=== PATIENT | male | born 1945 | race Caucasian/White ===

== ENCOUNTER 2018-03-13 14:14 | Observation (INO) | payer MEDICARE, BC ==
[2018-03-13 14:40] LABS: BASO % 0.7 % (0-6); EOS % 3.4 % (0-6); GRAN % 65.9 % (47-80); HEMATOCRIT 44.1 % (42.0-52.0); HEMOGLOBIN 14.5 gm/dl (14.0-18.0); LYMPH % 17.3 % (16-45); MEAN CELL VOLUME 83.4 fl (81-97); MEAN CORPUSCULAR HEMOGLOBIN 27.4 pg (27-33); MEAN CORPUSCULAR HGB CONC 32.9 g/dl (32-36); MEAN PLATELET VOLUME 11.3 fl (7.4-10.4); MONO % 12.7 % (0-9); PLATELET COUNT 209 K/uL (130-400); RED BLOOD COUNT 5.29 M/uL (4.40-5.70); RED CELL DISTRIBUTION WIDTH 13.6 % (11.5-14.5)
--- NOTE | 2018-03-13 14:40 | Emergency Department Record ---
History of Present Illness - General Chief complaint: Hypergylcemia Stated complaint: BLOOD SUGAR HIGH Time Seen by Provider: 03/13/18 14:26 Source: Patient, Family Mode of Arrival: Stretcher Limitations: No limitations - History of Present Illness Initial comments: The patient is here due to becoming very sweaty at his doctor's office about an hour ago. It lasted for about 30 minutes. He denied any CP, SOB, GIBRAN, BOOTH, AP, nausea, cough, fever, or back pain during the episode. The patient states he is now back to normal. His doctor was concerned for his heart so she called 911 and the patient was brought to the ER. MD Complaint: Generalized weakness Onset/Timin -: Minutes(s) Associated Symptoms: Diaphoresis - [place] Coma Scale Eye Response: (4) Open spontaneously Motor Response: (6) Obeys commands Verbal Response: (5) Oriented Skip Total: 15 - Related Data Home Medications Medication Instructions Recorded Confirmed Last Taken Alprazolam [Xanax] 0.5 mg PO ASDIR 03/13/18 03/13/18 Unknown Dicyclomine HCl [Bentyl] 1 tab PO DAILY 03/13/18 03/13/18 03/13/18 Guaifenesin [Mucinex] 600 mg PO DAILY 03/13/18 03/13/18 03/13/18 Magnesium Oxide [Magnesium] 500 mg PO ASDIR 03/13/18 03/13/18 03/13/18 Tiotropium [place] [Spiriva] 18 mcg IH DAILY 03/13/18 03/13/18 03/13/18 Allergies Allergy/AdvReac Type Severity Reaction Status Date / Time No Known Drug Allergies Allergy Verified 03/13/18 14:26 Travel Screening - Travel/Exposure Within Last 30 Days Have you traveled within the last 30 days?: No - Travel/Exposure Within Last Year Have you traveled outside the [place] in the last year?: No - Additonal Travel Details Have you been exposed to anyone with a communicable illness?: No - Travel Symptoms Symptom Screening: None Review of Systems Constitutional: Denies: Chills, Fever Eyes: Denies: Eye discharge ENT: Denies: Congestion Respiratory: Denies: Cough, Dyspnea Cardiovascular: Denies: Arrhythmia, Chest pain Endocrine: Denies: Fatigue Gastrointestinal: Denies: Abdominal pain Genitourinary: Denies: Dysuria Skin: Denies: Bruising Neurological: Denies: Abnormal gait Psychiatric: Denies: Anxiety Past Medical History - SOCIAL HISTORY Smoking Status: Former smoker Alcohol Use: None Drug Use: None - RESPIRATORY Hx Respiratory Disorders: Yes Hx COPD: Yes Hx Sleep Apnea: Yes Hx of CPAP: No - CARDIOVASCULAR Hx Cardio Disorders: Yes Hx Abnormal EKG: Yes Hx Cardiac Cath: Yes Hx Chest Pain: Yes Hx Heart Attack: Yes Hx Hypertension: Yes - NEURO Hx Neuro Disorders: No - GI Hx GI Disorders: No - Hx Genitourinary Disorders: Yes Hx Prostate Problems: Yes (enlarged prostate) - ENDOCRINE Hx Endocrine Disorders: Yes Hx Diabetes: Yes Hx Thyroid Disease: No - MUSCULOSKELETAL Hx Musculoskeletal Disorders: Yes Hx Arthritis: Yes - PSYCH Hx Psych Problems: Yes Hx Depression: Yes - HEMATOLOGY/ONCOLOGY Hx Hematology/Oncology Disorders: No Family Medical History Any Significant Family History?: No Family Hx Comment (NOT TO BE USED IN PLACE OF ITEMS BELOW): Pt adopted at 16 months, unfamiliar with familial history Physical Exam - General General Appearance: Alert, Oriented x3, Cooperative, No acute distress - Head Head exam: Atraumatic, Normocephalic, Normal inspection - Eye Eye exam: Normal appearance, PERRL - ENT Throat exam: Normal inspection. negative: Tonsillar erythema, Tonsillar exudate - Neck Neck exam: Normal inspection, Full ROM. negative: Tenderness - Respiratory Respiratory exam: Normal lung sounds bilaterally. negative: Respiratory distress - Cardiovascular Cardiovascular Exam: Regular rate, Normal rhythm, Normal heart sounds - GI/Abdominal GI/Abdominal exam: Soft, Normal bowel sounds. negative: Tenderness - Extremities Extremities exam: Full ROM, Normal capillary refill. negative: Normal inspection (There appears to be a superficial infection to the L forearm at a dog bite scratch site. ), Tenderness - Back Back exam: Reports: Normal inspection - Neurological Neurological exam: Alert, Normal gait. negative: Abnormal gait, Motor sensory deficit Course Vital Signs 03/13/18 14:18 Temperature 98.7 F Pulse Rate 105 H Respiratory 16 Rate Blood Pressure 140/91 Pulse Ox 96 - Reevaluation(s) Reevaluation #1: The patient is doing very well at this time. He denies any pain, cough, fever, or discomfort. I did explain to him that his BS is elevated but he clearly is not in DKA. Due to the sweating I did recommend a short stay hospital admission and the patient did agree. I also did discuss the case with Magaly ([employer]) and she does accept the admission for Dr. Mendoza. 03/13/18 15:31 Reevaluation #2: 2nd EKG: NSR at 103, RBBB with LPFB, neg for ischemic changes. 03/13/18 15:32 Medical Decision Making - Data Complexity MDM Data: Labs Ordered and/or Reviewed, X-Ray Ordered and/or Reviewed, EKG Ordered and/or Reviewed - Lab Data Result diagrams: 03/13/18 14:05 03/13/18 14:05 - EKG Data -: EKG Interpreted by Me EKG: No Acute Changes, Unchanged From Previous - Radiology Data Radiology results: Report reviewed (CXR: Poss atelectasis or infiltrate LLL ( doubt infiltrate due to no cough, fever, or WBC elevation)) Disposition Disposition: Admit Clinical Impression: Hyperglycemia, Nonspecific ST-T wave electrocardiographic changes Disposition: Still a Patient at [facility] Decision to Admit: Admit from ER Decision to Admit Date: 03/13/18 Decision to Admit Time: 15:33 Accepting Physician: Reji Time Discussed w/Accepting Physician: 15:33 Condition: (2) Stable Forms: Patient Portal Access Time of Disposition: 15:33 Quality - Quality Measures Quality Measures: N/A - Blood Pressure Screening View Details: Yes Does Patient Have Any of the Following: Active Dx of HTN Blood Pressure Classification: Hypertensive Reading Systolic Measurement: 140 Diastolic Measurement: 91 Screening for High Blood Pressure: Patient Exclusion, Hx of HTN [[id number]]
[2018-03-13 14:54] LABS: PARTIAL THROMBOPLASTIN TIME 27.3 SECONDS (24.5-39.1)
[2018-03-13 14:55] LABS: BLOOD UREA NITROGEN 17 mg/dL (8-23); CREATININE 0.8 mg/dL (0.7-1.2); EST GLOMERULAR FILTRATION RATE > 60 mL/min
[2018-03-13 15:01] LABS: CREATINE PHOSPHOKINASE 113 U/L (39-308)
[2018-03-13] MEDS ORDERED: HUMULIN R 100 UNIT/ML VIAL IV ONE (15:05)
[2018-03-13] MEDS ORDERED: 0.9 % SODIUM CHLORIDE 1,000 ML BAG IV ONE (15:08)
[2018-03-13 15:10] LABS: THYROID STIMULATING HORMONE 1.16 uIU/mL (0.270-4.20)
[2018-03-13 15:21] LABS: URINE APPEARANCE CLEAR; URINE BILIRUBIN NEGATIVE (NEGATIVE); URINE BLOOD NEGATIVE (NEGATIVE); URINE COLOR YELLOW; URINE KETONE NEGATIVE (NEGATIVE); URINE LEUKOCYTE ESTERASE NEGATIVE (NEGATIVE); URINE NITRITE NEGATIVE (NEGATIVE); URINE PROTEIN NEGATIVE (NEGATIVE); URINE UROBILINOGEN 0.2 E.U./dL (0.20 - 1.00)
[2018-03-13 15:21] LABS: GLUCOSE,RANDOM 474 mg/dL (74-109)
[2018-03-13 15:27] LABS: URINE GLUCOSE (UA) >=1000 mg/dL (NEGATIVE)
[2018-03-13] MEDS ORDERED: AMOXICILLIN/POTASSIUM CLAV 875MG/125MG TABLET PO ONE (15:28)
[2018-03-13] MEDS ORDERED: ASPIRIN 325 MG TABLET PO ONE (15:37)
[2018-03-13] MEDS ORDERED: HUMULIN R 100 UNIT/ML VIAL SC ONE (17:06)
[2018-03-13] MEDS ORDERED: 0.9 % SODIUM CHLORIDE 1000ML 1,000 ML IV PRN (18:26)
[2018-03-13] MEDS ORDERED: ACETAMINOPHEN 500 MG TABLET PO PRN (18:26)
[2018-03-13] MEDS ORDERED: ALPRAZOLAM 0.25 MG TABLET PO PRN (19:00)
[2018-03-13] MEDS: AMOXICILLIN/POTASSIUM CLAV 875MG/125MG TABLET PO SCH (21:04)
[2018-03-13] MEDS: BACLOFEN 10 MG TABLET PO SCH ×2 (21:05→21:59)
[2018-03-13] MEDS: NOVOLOG FLEXPEN (INSULIN ASPART) 100 UNITS/ML SQ SCH ×2 (21:06→23:23)
[2018-03-13] MEDS: PREGABALIN (LYRICA) 100MG CAPSULE PO SCH (21:06)
[2018-03-13] MEDS ORDERED: SIMVASTATIN 20 MG TABLET PO SCH (22:00)
[2018-03-13] MEDS ORDERED: HUMULIN R 100 UNIT/ML VIAL SQ SCH (22:00)
[2018-03-13] MEDS ORDERED: TAMSULOSIN HCL 0.4 MG CAP.ER.24H PO SCH (22:00)
[2018-03-13] MEDS: ADVAIR PUFF SCH (22:22)
[2018-03-14 04:55] LABS: ALB/GLOB RATIO 1.3 (1.1-1.8); ALBUMIN 3.6 g/dL (4.0-5.0); ALKALINE PHOSPHATASE 65 U/L (40-129); ALT/SGPT 43 U/L (<41); AST/SGOT 48 U/L (10.0-50.0); BLOOD UREA NITROGEN 14 mg/dL (8-23); CREATININE 0.6 mg/dL (0.7-1.2); EST GLOMERULAR FILTRATION RATE > 60 mL/min; GLUCOSE,RANDOM 133 mg/dL (74-109); TOTAL PROTEIN 6.4 g/dL (6.6-8.7)
[2018-03-14 04:58] LABS: CKMB 3.6 ng/mL (<6.73)
--- NOTE | 2018-03-14 07:28 | RADIOLOGY REPORT ---
EXAM: CHEST, TWO VIEWS HISTORY: DIFFICULTY IN BREATHING. TECHNIQUE: PA and lateral views of the chest were obtained. Comparison: Two view chest 11/08/16. FINDINGS: The heart size is within normal limits. Calcification and mild torsion of the aorta. Minor streaky atelectasis or infiltrate in the lingula anterolaterally. No pleural effusion of pneumothorax evidence. Spinal stimulator wires in place, also present previously, extending up to the approximate T8 level. Hypertrophic spurring in the thoracic spine. IMPRESSION: 1. MILD STREAKY ATELECTASIS OR INFILTRATE IN THE LINGULA ANTEROLATERALLY. 2. SPINAL STIMULATOR WIRES IN PLACE. 3. HYPERTROPHIC SPURRING IN THE SPINE. JOB NUMBER: [id number] [facility]
[2018-03-14 07:46] LABS: BASO % 0.6 % (0-6); EOS % 2.9 % (0-6); GRAN % 69.1 % (47-80); HEMATOCRIT 45.1 % (42.0-52.0); HEMOGLOBIN 14.9 gm/dl (14.0-18.0); LYMPH % 14.8 % (16-45); MEAN CELL VOLUME 83.2 fl (81-97); MEAN CORPUSCULAR HEMOGLOBIN 27.5 pg (27-33); MEAN PLATELET VOLUME 10.9 fl (7.4-10.4); MONO % 12.6 % (0-9); PLATELET COUNT 230 K/uL (130-400); RED BLOOD COUNT 5.42 M/uL (4.40-5.70); RED CELL DISTRIBUTION WIDTH 13.8 % (11.5-14.5); WHITE BLOOD COUNT W/O DIFF 9.4 K/uL (4.2-12.2)
--- NOTE | 2018-03-14 08:14 | History & Physical ---
History of Present Illness - Date of Service Date of Service for History & Physical: 03/14/18 - History of Present Illness Admitting Diagnosis: 1. New Onset Hyperglycemia with Diaphoresis, R/O CT. History of Present Illness: Lei Shipley is a 72 y.o. male who was brought to the ED by ambulance from his doctor's office on 03/13/2018. He had become diaphoretic for approximately 30 minutes while in the doctor's office but denied any other symptoms. While in the ER, blood glucose level was found to be 474 but he was determined not be be in DKA. EKG in the ED indicated nonspecific ST-T wave electrocardiographic changes, cardiac enzymes negative, CXR indicated possible atelectasis or infiltrate however infiltrate thought to be unlikely d/t no cough , fever or WBC elevation. PMHx includes: COPD, Sleep Apnea without CPAP, HTN, questionable hx of CT, enlarged prostate, OA, sciatica with spinal stimulator and DM. 03/14/2018: Pt resting comfortably in bed. Pt is a poor historian and unable to answer many questions about medications and his medical history. Does report that he was sweaty and pale while in "Eliana's office" yesterday but denied having any other symptoms. States that he was at his 2nd appointment with Eliana SUAREZ (appears to be from [facility]), as he has recently moved doctors because his last doctor "made him mad". Reports that he does not check his blood sugar often , maybe a few times a week but can't recall what his blood glucose levels are. Only takes his Novolog 25 units in the morning with his Lantus 100 units which he says he gives to himself. Doesn't do the other Novolog injections during the day because his previoius doctor "made him mad so I said forget it, I am not taking all that insulin." Hasn't been taking his insulin as prescribed for approximately 5 months. Confirms PMHx but is unaware if he has had a heart attack or any heart problems. States he had a bunch of tests at some hospital in [place] but was never told what he had. Pt is currently taking Simvastatin, Benazepril and ASA and states that he takes all of his pills every day but doesn 't know what each pill is for. He denies having any pain, SOB, GIBRAN, BOOTH, chills, fever, chest pain, edema, sweaty feeling or any discomfort. States that he has his normal cough, where he coughs up some mucous but that it hasn't changed at all. Wears 4L of O2 at all times. Reports that the dog scratch on his left arm has been there for one week. States there was never any drainage. PCP: [facility] in [place] Travel Screening - Travel/Exposure Within Last 30 Days Have you traveled within the last 30 days?: No - Travel/Exposure Within Last Year Have you traveled outside the [place] in the last year?: No - Additonal Travel Details Have you been exposed to anyone with a communicable illness?: No - Travel Symptoms Symptom Screening: None Review of Systems Reviewed: No additional complaints except as noted below Constitutional: Denies: Chills, Fever Eyes: Denies: Vision change ENT: Denies: Congestion Respiratory: Reports: Cough ("Always have a little one"). Denies: Dyspnea Cardiovascular: Denies: Arrhythmia, Chest pain, Edema Endocrine: Denies: Fatigue Gastrointestinal: Denies: Abdominal pain, Constipation, Diarrhea Genitourinary: Reports: Frequency ("big prostate"). Denies: Dysuria Musculoskeletal: Denies: Back pain Skin: Reports: Lesions (Dog scratch on left arm, cat scratches on legs). Denies : Bruising, Change in hair/nails Neurological: Denies: Abnormal gait, Confusion, Headache, Tingling Psychiatric: Denies: Anxiety Past Medical History - SOCIAL HISTORY Smoking Status: Former smoker Alcohol Use: None Drug Use: None - RESPIRATORY Hx Respiratory Disorders: Yes Hx COPD: Yes Hx Sleep Apnea: Yes Hx of CPAP: No - CARDIOVASCULAR Hx Cardio Disorders: Yes Hx Abnormal EKG: Yes Hx Cardiac Cath: Yes Hx Chest Pain: Yes Hx Heart Attack: Yes Hx Hypertension: Yes - NEURO Hx Neuro Disorders: No - GI Hx GI Disorders: No - Hx Genitourinary Disorders: Yes Hx Prostate Problems: Yes (enlarged prostate) - ENDOCRINE Hx Endocrine Disorders: Yes Hx Diabetes: Yes Hx Thyroid Disease: No - MUSCULOSKELETAL Hx Musculoskeletal Disorders: Yes Hx Arthritis: Yes - PSYCH Hx Psych Problems: Yes Hx Depression: Yes - HEMATOLOGY/ONCOLOGY Hx Hematology/Oncology Disorders: No Family Medical History Any Significant Family History?: No Family Hx Comment (NOT TO BE USED IN PLACE OF ITEMS BELOW): Pt adopted at 16 months, unfamiliar with familial history H&P Meds/Allergies - Allergies Allergies: Allergies Allergy/AdvReac Type Severity Reaction Status Date / Time No Known Drug Allergies Allergy Verified 03/13/18 14:26 - Home Medications Home Medications Medication Instructions Recorded Confirmed Last Taken Alprazolam [Xanax] 0.5 mg PO TID PRN 03/13/18 03/13/18 Unknown Dicyclomine HCl [Bentyl] 1 tab PO DAILY 03/13/18 03/13/18 03/13/18 Guaifenesin [Mucinex] 600 mg PO DAILY 03/13/18 03/13/18 03/13/18 Magnesium Oxide [Magnesium] 500 mg PO ASDIR 03/13/18 03/13/18 03/13/18 Tiotropium [place] [Spiriva] 18 mcg IH DAILY 03/13/18 03/13/18 03/13/18 - Active Medications Active Medications: Current Medications Acetaminophen (Tylenol 500mg Tab) 500 mg PO Q6H PRN PRN Reason: PAIN - MILD(1-4)/FEVER Alprazolam (Xanax) 0.5 mg PO TID PRN PRN Reason: ANXIETY Amoxicillin/Clavulanate Potassium (Augmentin 875 Tab) 1 each PO BID [facility] Last Admin: 03/13/18 21:04 Dose: 1 each Aspirin (Ecotrin (Ec)) 325 mg PO DAILY [facility] Baclofen (Lioresal) 10 mg PO TID [facility] Last Admin: 03/13/18 21:59 Dose: Not Given Benazepril HCl (Lotensin) 5 mg PO DAILY [facility] Sodium Chloride () 1,000 mls @ 100 mls/hr IV .Q10H PRN PRN Reason: LARGE VOLUME IV Insulin Aspart (Novolog Flexpen) 25 unit SQ TIDINS [facility] Last Admin: 03/13/18 21:06 Dose: 25 unit Insulin Aspart (Novolog Flexpen) 1 unit SQ QIDINS [facility]; Protocol Last Admin: 03/13/18 23:23 Dose: 12 unit Insulin Detemir (Levemir Flextouch) 100 unit SQ DAILY [facility] Patient Own Med: (Advair 500/50 Mg) 1 each PUFF BID [facility] Last Admin: 03/13/18 22:22 Dose: 1 each Patient Own Med: (Spiriva 18 Mcg Caps) 1 each PUFF DAILY [facility] Pregabalin (Lyrica) 100 mg PO BID [facility] Last Admin: 03/13/18 21:06 Dose: 100 mg Simvastatin (Zocor) 40 mg PO QHS [facility] Last Admin: 03/13/18 21:05 Dose: 40 mg Tamsulosin HCl (Flomax) 0.4 mg PO QHS [facility] Last Admin: 03/13/18 21:06 Dose: 0.4 mg Venlafaxine HCl (Effexor Xr) 150 mg PO DAILY [facility] Physical Exam - Vital Signs Vital Signs: Vital Signs - Last 24 Hrs Temp Pulse Pulse Resp BP BP Pulse Ox 03/14/18 07:49 98.7 F 118 H 18 100 03/14/18 04:30 96 03/14/18 04:00 97.7 F 91 H 17 135/95 96 03/14/18 00:00 97.5 F L 108 H 18 140/98 94 L 03/13/18 22:26 109 H 18 97 03/13/18 20:00 97.9 F 104 H 16 184/110 96 03/13/18 18:26 98.7 F 69 18 101/50 97 03/13/18 17:54 80 20 03/13/18 16:36 89 16 146/87 95 03/13/18 16:24 87 16 149/88 95 03/13/18 15:20 92 H 16 131/77 95 03/13/18 14:18 98.7 F 105 H 16 140/91 96 - General General Appearance: Alert, Oriented x3, Cooperative, No acute distress Limitations: Other (poor historian) - Head Head exam: Atraumatic, Normocephalic, Normal inspection - Eye Eye exam: Normal appearance - ENT Throat exam: Normal inspection, Tonsillar erythema, Tonsillar exudate - Neck Neck exam: Normal inspection, Full ROM. negative: Tenderness - Respiratory Respiratory exam: Normal lung sounds bilaterally. negative: Respiratory distress - Cardiovascular Cardiovascular Exam: Regular rate, Normal rhythm, Normal heart sounds - GI/Abdominal GI/Abdominal exam: Soft, Normal bowel sounds, Distended. negative: Tenderness - Rectal Rectal exam: Deferred - exam: Deferred - Extremities Extremities exam: Full ROM, Normal capillary refill. negative: Normal inspection (Scratch to left Forearm, redness surrounding, no drainage noted, some warmth surrounding open area), Pedal edema, Tenderness - Back Back exam: Reports: Normal inspection - Neurological Neurological exam: Alert, Normal gait. negative: Abnormal gait, Motor sensory deficit - Skin Skin exam: Dry, Warm. negative: Diaphoretic (Scratch to left Forearm, redness surrounding, no drainage noted, some warmth surrounding open area), Intact Type of lesion: Laceration Distribution of rash: LUE Results - Labs Result Diagrams: 03/14/18 07:35 03/14/18 04:30 Labs Last 24 Hours: Laboratory Results - last 24 hr 03/13/18 03/13/18 03/13/18 14:05 14:05 14:05 WBC 7.0 RBC 5.29 Hgb 14.5 Hct 44.1 MCV 83.4 MCH 27.4 MCHC 32.9 RDW 13.6 Plt Count 209 MPV 11.3 H Gran % 65.9 Lymphocytes % 17.3 Monocytes % 12.7 H Eosinophils % 3.4 Basophils % 0.7 PT 11.0 INR 1.0 APTT 27.3 Sodium 137 Potassium 4.1 Chloride 97 L Carbon Dioxide 25.0 Anion Gap 15.0 BUN 17 Creatinine 0.8 Estimated GFR > 60 POC Glucose Random Glucose 474 H* Calcium 8.9 Total Bilirubin AST ALT Alkaline Phosphatase Creatine Kinase 113 CK-MB (CK-2) 4.0 Troponin T < 0.010 Total Protein Albumin Globulin Albumin/Globulin Ratio TSH 1.16 Urine Color Urine Appearance Urine pH Ur Specific [place] Urine Protein Urine Glucose (UA) Urine Ketones Urine Blood Urine Nitrite Urine Bilirubin Urine Urobilinogen Ur Leukocyte Esterase Acetone, Qual 03/13/18 03/13/18 03/13/18 15:02 15:10 19:09 WBC RBC Hgb Hct MCV MCH MCHC RDW Plt Count MPV Gran % Lymphocytes % Monocytes % Eosinophils % Basophils % PT INR APTT Sodium Potassium Chloride Carbon Dioxide Anion Gap BUN Creatinine Estimated GFR POC Glucose 356 H Random Glucose Calcium Total Bilirubin AST ALT Alkaline Phosphatase Creatine Kinase CK-MB (CK-2) Troponin T Total Protein Albumin Globulin Albumin/Globulin Ratio TSH Urine Color Yellow Urine Appearance Clear Urine pH 6.0 Ur Specific [place] <= 1.005 Urine Protein Negative Urine Glucose (UA) >=1000 mg/dl H Urine Ketones Negative Urine Blood Negative Urine Nitrite Negative Urine Bilirubin Negative Urine Urobilinogen 0.2 Ur Leukocyte Esterase Negative Acetone, Qual Negative 03/13/18 03/13/1803/13/18 21:00 21:00 22:00 WBC RBC Hgb Hct MCV MCH MCHC RDW Plt Count MPV Gran % Lymphocytes % Monocytes % Eosinophils % Basophils % PT INR APTT Sodium Potassium Chloride Carbon Dioxide Anion Gap BUN Creatinine Estimated GFR POC Glucose Cancelled Random Glucose Calcium Total Bilirubin AST ALT Alkaline Phosphatase Creatine Kinase CK-MB (CK-2) 3.7 Troponin T < 0.010 Total Protein Albumin Globulin Albumin/Globulin Ratio TSH Urine Color Urine Appearance Urine pH Ur Specific [place] Urine Protein Urine Glucose (UA) Urine Ketones Urine Blood Urine Nitrite Urine Bilirubin Urine Urobilinogen Ur Leukocyte Esterase Acetone, Qual 03/13/18 03/14/18 03/14/18 22:15 04:30 04:30 WBC RBC Hgb Hct MCV MCH MCHC RDW Plt Count MPV Gran % Lymphocytes % Monocytes % Eosinophils % Basophils % PT INR APTT Sodium Potassium Chloride Carbon Dioxide Anion Gap BUN Creatinine Estimated GFR POC Glucose 275 H Random Glucose Calcium Total Bilirubin AST ALT Alkaline Phosphatase Creatine Kinase CK-MB (CK-2) Cancelled Troponin T Cancelled Total Protein Albumin Globulin Albumin/Globulin Ratio TSH Urine Color Urine Appearance Urine pH Ur Specific [place] Urine Protein Urine Glucose (UA) Urine Ketones Urine Blood Urine Nitrite Urine Bilirubin Urine Urobilinogen Ur Leukocyte Esterase Acetone, Qual 03/14/18 03/14/18 03/14/18 04:30 07:30 07:35 WBC 9.4 RBC 5.42 Hgb 14.9 Hct 45.1 MCV 83.2 MCH 27.5 MCHC 33.0 RDW 13.8 Plt Count 230 MPV 10.9 H Gran % 69.1 Lymphocytes % 14.8 L Monocytes % 12.6 H Eosinophils % 2.9 Basophils % 0.6 PT INR APTT Sodium 141 Potassium 4.6 H Chloride 103 Carbon Dioxide 24.0 Anion Gap 14.0 BUN 14 Creatinine 0.6 L Estimated GFR > 60 POC Glucose 184 H Random Glucose 133 H Calcium 8.8 Total Bilirubin 0.30 AST 48 ALT 43 H Alkaline Phosphatase 65 Creatine Kinase CK-MB (CK-2) 3.6 Troponin T < 0.010 Total Protein 6.4 L Albumin 3.6 L Globulin 2.8 Albumin/Globulin Ratio 1.3 TSH Urine Color Urine Appearance Urine pH Ur Specific [place] Urine Protein Urine Glucose (UA) Urine Ketones Urine Blood Urine Nitrite Urine Bilirubin Urine Urobilinogen Ur Leukocyte Esterase Acetone, Qual VTE H&P Assessment - Risk for VTE Risk for VTE: Yes Risk Level: High Risk Assessment Date: 03/14/18 Risk Assessment Time: 09:11 VTE Orders Placed or Will Be Placed: No VTE Reason for No Prophylaxis: Not Indicated (Pt ambulating, on ASA 81mg) Plan - Detailed Diagnosis and Plan (1) Hyperglycemia Current Visit: Yes Status: Acute Base Code: R73.9 - HYPERGLYCEMIA, UNSPECIFIED (2) Diaphoresis Current Visit: Yes Status: Acute Base Code: R61 - GENERALIZED HYPERHIDROSIS Comment: 03/14/2018: -Cardiac enzymes negative x 2 -EKG indicates no acute changes -CXR indicates possibile atelectasis or infiltrate, pt on Augmentin for a dog scratch/cellulitis which should cover possible infiltrate (3) Noncompliance Current Visit: Yes Status: Acute Base Code: Z91.19 - PATIENT'S NONCOMPLIANCE W OTH MEDICAL TREATMENT AND REGIMEN Comment: 03/14/2018 -Attempted to contact [facility] (pt's PCP) to discuss diabetic management needs, voicemail left to return call -Would recommend oral medications in addition to higher lantus coverage as pt is not taking short acting insulin as prescribed -Educated pt on need to take insulin in order to keep blood glucose levels down (4) Skin infection Current Visit: Yes Status: Acute Base Code: L08.9 - LOCAL INFECTION OF THE SKIN AND SUBCUTANEOUS TISSUE, UNSP Comment: -Continue Augmentin PO BID for left arm skin infection r/t dog scratch (5) DVT prophylaxis Current Visit: Yes Status: Acute Base Code: [id number] - Comment: 03/14/2018 -Nursing to encourage ambulation -Continue home medication = ASA 81mg daily (6) Full code status Current Visit: Yes Status: Acute Base Code: Z78.9 - OTHER SPECIFIED HEALTH STATUS Comment: 03/14/2018: Pt is a full code this admission
[2018-03-14] MEDS: PREGABALIN (LYRICA) 100MG CAPSULE PO SCH (09:17)
[2018-03-14] MEDS: NOVOLOG FLEXPEN (INSULIN ASPART) 100 UNITS/ML SQ SCH ×4 (09:21→12:10)
[2018-03-14] MEDS: BACLOFEN 10 MG TABLET PO SCH (09:24)
[2018-03-14] MEDS: AMOXICILLIN/POTASSIUM CLAV 875MG/125MG TABLET PO SCH (09:24)
--- NOTE | 2018-03-14 09:36 | Discharge Summary ---
Providers Discharge Summary Date: 03/14/18 Date of admission: 03/13/18 17:05 Expected Date of Discharge: 03/14/18 Attending physician: JESSICA ROBERTSON Primary care physician: JOSE RAFAEL RUTLEDGE M.D. Physical Exam - Vital Signs Vital Signs: Vital Signs - Last 24 Hrs Temp Pulse Pulse Resp BP BP Pulse Ox 03/14/18 07:49 98.7 F 118 H 18 100 03/14/18 04:30 96 03/14/18 04:00 97.7 F 91 H 17 135/95 96 03/14/18 00:00 97.5 F L 108 H 18 140/98 94 L 03/13/18 22:26 109 H 18 97 03/13/18 20:00 97.9 F 104 H 16 184/110 96 03/13/18 18:26 98.7 F 69 18 101/50 97 03/13/18 17:54 80 20 03/13/18 16:36 89 16 146/87 95 03/13/18 16:24 87 16 149/88 95 03/13/18 15:20 92 H 16 131/77 95 03/13/18 14:18 98.7 F 105 H 16 140/91 96 - General General Appearance: Alert, Oriented x3, Cooperative, No acute distress Limitations: Other (poor historian) - Head Head exam: Atraumatic, Normocephalic, Normal inspection - Eye Eye exam: Normal appearance - ENT Throat exam: Normal inspection - Neck Neck exam: Normal inspection, Full ROM. negative: Tenderness - Respiratory Respiratory exam: Normal lung sounds bilaterally. negative: Respiratory distress - Cardiovascular Cardiovascular Exam: Regular rate, Normal rhythm, Normal heart sounds - GI/Abdominal GI/Abdominal exam: Soft, Normal bowel sounds, Distended. negative: Tenderness - Rectal Rectal exam: Deferred - exam: Deferred - Extremities Extremities exam: Full ROM, Normal capillary refill. negative: Normal inspection (Scratch to left Forearm, redness surrounding, no drainage noted, some warmth surrounding open area), Pedal edema, Tenderness - Back Back exam: Reports: Normal inspection - Neurological Neurological exam: Alert, Normal gait. negative: Abnormal gait, Motor sensory deficit - Skin Skin exam: Dry, Warm. negative: Diaphoretic (Scratch to left Forearm, redness surrounding, no drainage noted, some warmth surrounding open area), Intact Type of lesion: Laceration Distribution of rash: LUE Hospitalization - Hospitalization Admission Diagnosis: 1. New Onset Hyperglycemia with Diaphoresis, R/O MN. - Problem List/Discharge Diagnosis (1) Hyperglycemia Current Visit: Yes Status: Acute Base Code: R73.9 - HYPERGLYCEMIA, UNSPECIFIED (2) Diaphoresis Current Visit: Yes Status: Acute Base Code: R61 - GENERALIZED HYPERHIDROSIS Comment: 03/14/2018: -Cardiac enzymes negative x 2 -EKG indicates no acute changes -CXR indicates possibile atelectasis or infiltrate, pt on Augmentin for a dog scratch/cellulitis which should cover possible infiltrate -Continue Augmentin twice a day until pills are gone (total of 10 days) (3) Noncompliance Current Visit: Yes Status: Acute Base Code: Z91.19 - PATIENT'S NONCOMPLIANCE W OTH MEDICAL TREATMENT AND REGIMEN Comment: 03/14/2018 -Attempted to contact [facility] (pt's PCP) to discuss diabetic management needs, voicemail left to return call -Would recommend oral medications in addition to higher lantus coverage as pt is not taking short acting insulin as prescribed -Educated pt on need to take insulin in order to keep blood glucose levels down (4) Skin infection Current Visit: Yes Status: Acute Base Code: L08.9 - LOCAL INFECTION OF THE SKIN AND SUBCUTANEOUS TISSUE, UNSP Comment: -Continue Augmentin PO BID x 9 days (total of 10 days for treatment) for left arm skin infection r/t dog scratch (5) DVT prophylaxis Current Visit: Yes Status: Acute Base Code: [id number] - Comment: 03/14/2018 -Nursing to encourage ambulation -Continue home medication = ASA 81mg daily (6) Full code status Current Visit: Yes Status: Acute Base Code: Z78.9 - OTHER SPECIFIED HEALTH STATUS Comment: 03/14/2018: Pt is a full code this admission - Disposition Take your insulin as prescribed. Lantus in the morning and Novolog three times a day. Take your Augmentin antibiotic as prescribed for the left arm skin infection around dog scratch. Start taking this evening and then twice a day until gone. Monitor your blood glucose levels daily, keep a log and take to your primary care doctor. Take all of your pills as prescribed. - Hospitalization Course Disposition: Home, Self-Care Hospital Course: Lei Shipley is a 72 y.o. male who was brought to the ED by ambulance from his doctor's office on 03/13/2018. He had become diaphoretic for approximately 30 minutes while in the doctor's office but denied any other symptoms. While in the ER, blood glucose level was found to be 474 but he was determined not be be in DKA. EKG in the ED indicated nonspecific ST-T wave electrocardiographic changes, cardiac enzymes negative, CXR indicated possible atelectasis or infiltrate however infiltrate thought to be unlikely d/t no cough , fever or WBC elevation. PMHx includes: COPD, Sleep Apnea without CPAP, HTN, questionable hx of MN, enlarged prostate, OA, sciatica with spinal stimulator and DM. 03/14/2018: Pt resting comfortably in bed. Pt is a poor historian and unable to answer many questions about medications and his medical history. Does report that he was sweaty and pale while in "Eliana's office" yesterday but denied having any other symptoms. States that he was at his 2nd appointment with Eliana SUAREZ (appears to be from [facility]), as he has recently moved doctors because his last doctor "made him mad". Reports that he does not check his blood sugar often , maybe a few times a week but can't recall what his blood glucose levels are. Only takes his Novolog 25 units in the morning with his Lantus 100 units which he says he gives to himself. Doesn't do the other Novolog injections during the day because his previoius doctor "made him mad so I said forget it, I am not taking all that insulin." Hasn't been taking his insulin as prescribed for approximately 5 months. Confirms PMHx but is unaware if he has had a heart attack or any heart problems. States he had a bunch of tests at some hospital in [place] but was never told what he had. Pt is currently taking Simvastatin, Benazepril and ASA and states that he takes all of his pills every day but doesn 't know what each pill is for. He denies having any pain, SOB, GIBRAN, BOOHT, chills, fever, chest pain, edema, sweaty feeling or any discomfort. States that he has his normal cough, where he coughs up some mucous but that it hasn't changed at all. Wears 4L of O2 at all times. Reports that the dog scratch on his left arm has been there for one week. States there was never any drainage. PCP: [facility] in [place] Procedures: Imaging and X-Rays 03/13/18 14:32 CHEST 2 VIEWS [RAD] Stat Cardiology Procedures 03/13/18 14:32 Behavioral Instructor NOW EKG NOW 03/13/18 15:09 EKG NOW 03/13/18 18:26 Behavioral Instructor .Continuous EKG QDX2@0600 Abnormal Labs: Abnormal Lab Results 03/13/18 03/13/18 03/13/18 Range/Units 14:05 14:05 15:10 MPV 11.3 H (7.4-10.4) fl Lymphocytes % (16-45) % Monocytes % 12.7 H (0-9) % Potassium (3.4-4.5) mmol/L Chloride 97 L (98-107) mmol/L Creatinine (0.7-1.2) mg/dL POC Glucose (70-110) mg/dL Random Glucose 474 H* (74-109) mg/dL ALT (<41) U/L Total Protein (6.6-8.7) g/dL Albumin (4.0-5.0) g/dL Urine Glucose (UA) >=1000 mg/dl H (NEGATIVE) 03/13/18 03/13/18 03/14/18 Range/Units 19:09 22:15 04:30 MPV (7.4-10.4) fl Lymphocytes % (16-45) % Monocytes % (0-9) % Potassium 4.6 H (3.4-4.5) mmol/L Chloride (98-107) mmol/L Creatinine 0.6 L (0.7-1.2) mg/dL POC Glucose 356 H 275 H (70-110) mg/dL Random Glucose 133 H (74-109) mg/dL ALT 43 H (<41) U/L Total Protein 6.4 L (6.6-8.7) g/dL Albumin 3.6 L (4.0-5.0) g/dL Urine Glucose (UA) (NEGATIVE) 03/14/18 03/14/18 Range/Units 07:30 07:35 MPV 10.9 H (7.4-10.4) fl Lymphocytes % 14.8 L (16-45) % Monocytes % 12.6 H (0-9) % Potassium (3.4-4.5) mmol/L Chloride (98-107) mmol/L Creatinine (0.7-1.2) mg/dL POC Glucose 184 H (70-110) mg/dL Random Glucose (74-109) mg/dL ALT (<41) U/L Total Protein (6.6-8.7) g/dL Albumin (4.0-5.0) g/dL Urine Glucose (UA) (NEGATIVE) Condition at Discharge: (2) Stable VTE Discharge VTE Reason For No Overlap Therapy: Not Indicated Discharge Medications - Discharge Medications Prescriptions: Amoxicillin/Potassium Clav [Augmentin 875Mg/125Mg] 1 each PO BID #18 tablet Home Medications: Ambulatory Orders Aspirin [Aspirin EC] 81 mg PO DAILY 08/12/14 [Last Taken 03/13/18] Baclofen 10 mg PO TID 08/12/14 [Last Taken 03/13/18] Benazepril HCl [Lotensin] 5 mg PO DAILY 08/12/14 [Last Taken 03/13/18] Calcium Carbonate/Vitamin D3 [Calcium 600 + Vit D Tablet] 1 tab PO DAILY [Last Taken 03/13/18] Fluticasone/Salmeterol [Advair 500-50 Diskus] 500 mg INH BID 08/12/14 [Last Taken 03/13/18] Insulin Aspart [Novolog Flexpen] 25 units SQ TIDAC 08/12/14 [Last Taken 03/13/18 ] Insulin Glargine,Hum.rec.anlog [Lantus Solostar] 100 units SQ QAM 08/12/14 [ Last Taken 03/13/18] Pregabalin [Lyrica] 150 mg PO BID 08/12/14 [Last Taken 03/13/18] Simvastatin 40 mg PO QHS 08/12/14 [Last Taken 03/13/18] Tamsulosin HCl 0.4 mg PO QHS 08/12/14 [Last Taken 03/13/18] Venlafaxine HCl [Effexor Xr] 150 mg PO DAILY 08/12/14 [Last Taken 03/13/18] Alprazolam [Xanax] 0.5 mg PO TID PRN 08/16/18 [Last Taken Unknown] Dicyclomine HCl [Bentyl] 1 tab PO DAILY 03/13/18 [Last Taken 03/13/18] Guaifenesin [Mucinex] 600 mg PO DAILY 03/13/18 [Last Taken 03/13/18] Magnesium Oxide [Magnesium] 500 mg PO ASDIR 03/13/18 [Last Taken 03/13/18] Tiotropium [place] [Spiriva] 18 mcg IH DAILY 03/13/18 [Last Taken 03/13/18] Amoxicillin/Potassium Clav [Augmentin 875Mg/125Mg] 1 each PO BID #18 tablet [Last Taken Unknown] Discharge Plan - Discharge Instructions Activity at Discharge: Resume Usual Activities As Tolerated Diet at Discharge: Diabetic Diet, Low Fat, Low Cholesterol Additional Instructions: Appointment with Dr. Fisher at [facility] in [place] on March 18 at 1:00PM. Phone# [phone]. Quality Measures - Quality Measures Quality Measures: Advance Directives, Documentation of Current Medications in Medical Record, Elder Maltreatment Screen and Follow-Up Plan, Screening for High Blood Pressure and F/U Documented - Current Medications Quality Measure: Measure #130: Documentation of Current Medications Documentation of Current Medications: <Current Medications Documented/Reviewed> [F1891] - Blood Pressure Screening Quality Measure: Screening for High Blood Pressure and Follow-Up Documented Does Patient Have Any of the Following: Active Dx of HTN Blood Pressure Classification: Pre-Hypertensive BP Reading Systolic Measurement: 149 Diastolic Measurement: 88 Screening for High Blood Pressure: Patient Exclusion, Hx of HTN [[id number]] - Advance Directives Quality Measure: Measure #47: Care Plan Advance Directives Established: No Advance Directives Information Provided To Patient: Already Provided Advance Directives on File: No Living Will: Yes Power of Beef Tagger: No Advance Care Planning: <Care Plan/Decision Maker Documented; Discussed & Documented> [[id number]] - Elder Abuse Suspicion Index Screening: Elder Abuse Suspicion Index Screening Rely on people for bathing, dressing, shopping, banking, etc: No Prevented from getting food, clothes, medication, etc: No Made to feel shamed or threatened by someone: No Forced to sign papers or use money against will: No Feel afraid, touched in ways not wanted or hurt physically: No Poor eye contact, withdrawn, malnourished, cuts or bruises: No Screening Result: Negative result EASI Reference Information: Chris DUNCAN, Luann C, Reynaldo D, Kali Velazquez.Development and validation of a tool to assist physicians identification of elder abuse: The Elder Abuse Suspicion Index (EASI ). Journal of Elder Abuse and Neglect, 2008; 20 (3): 276-300. - Elder Maltreatment Screen Quality Measures: Elder Maltreatment Screen and Follow-Up Plan Elder Maltreatment Screen: <Negative, No Follow-Up Plan Required> [[id number]]
[2018-03-14] MEDS: ADVAIR PUFF SCH (09:58)
[2018-03-14] MEDS ORDERED: VENLAFAXINE ER 75 MG CAPSULE PO SCH (10:00)
[2018-03-14] MEDS ORDERED: UMECLIDINIUM BROMIDE (INCRUSE) 62.5MCG IH SCH (10:00)
[2018-03-14] MEDS ORDERED: BENAZEPRIL 20 MG TABLET PO SCH (10:00)
[2018-03-14] MEDS ORDERED: ASPIRIN 325 MG TAB ENTERIC-COATED PO SCH (10:00)
[2018-03-14] MEDS ORDERED: BREO (FLUTICASONE/VILANTEROL) 200MCG/25MCG INHALER INH SCH (10:00)
[2018-03-14] MEDS ORDERED: SPIRIVA 18 MCG PUFF SCH (10:00)
[2018-03-14] MEDS ORDERED: LEVEMIR FLEXTOUCH 100 UNIT/ML INSULIN PEN SQ SCH (10:00)
== END 2018-03-14 13:30 | disposition home or self-care (01) ==
LOC: ER 14:14 → MEDSURG 17:05
PROVIDERS: ADMIT Internal Medicine; ATTEND Internal Medicine
DX: R73.9 Hyperglycemia, unspecified (principal); R61 Generalized hyperhidrosis; R94.31 Abnormal electrocardiogram [ECG] [EKG]; Z91.19 Patient's noncompliance with other medical treatment and regimen; L08.9 Local infection of the skin and subcutaneous tissue, unspecified; J44.9 Chronic obstructive pulmonary disease, unspecified; I10 Essential (primary) hypertension; I25.2 Old myocardial infarction; E11.9 Type 2 diabetes mellitus without complications; Z79.4 Long term (current) use of insulin; M19.90 Unspecified osteoarthritis, unspecified site; F17.210 Nicotine dependence, cigarettes, uncomplicated; N40.0 Benign prostatic hyperplasia without lower urinary tract symptoms
CPT/HCPCS: 82550; 85025 ×2; 85730; 85610; 82553 ×2; 80048; 80053; 36416 ×2; 82009; 82948 ×2; 81003; 84443; 84484 ×2; 71046; 94640 ×2; 94761; 94760; 93005 ×2; 93010; G0378 ×2; J1815 ×3; 96365; 99220; 99285; J7030